=== PATIENT | male | born 1960 | race Caucasian/White ===

== ENCOUNTER 2021-03-04 07:50 | Day surgery (SDC) | payer BC ==
--- NOTE | 2021-03-01 11:44 | NUR ---
COVID SWAB COLLECTED AND SENT TO [facility]
[~2021-03-04] VITALS: Ht 175.3 cm; Wt 106.4 kg
[~2021-03-04 07:50] MED LIST: ALEVE220 MG PO; ALLER-TEC10 MG PO; METOPROLOL TART25 MG PO; PREDNISONE20 MG PO; TRIAMTERENE-HC1 EAC3 PO
[2021-03-04] MEDS ORDERED: HYDROCODON-ACE1 EA10 PO (11:38)
--- NOTE | 2021-03-04 12:13 | NUR ---
03/04/21 1213 Annabel Arauz 1135 PT ARRIVED IN PACU SLEEPY. L LEG ELEVATED AND ICE PLACED. 1145 PT AWAKE AND TALKING TO STAFF. TAKING SIPS OF WATER. 1200 TO DS. REPORT GIVEN TO RN AT 1205. WATER AND CRACKERS GIVEN TO PT.
--- NOTE | 2021-03-04 12:17 | NUR ---
1205: PT RETURNS TO DAY SURGERY ROOM 4 VIA STRETCHER. AWAKE AND ORIENTED. VSS, RESP EVEN AND UNLABORED. REPORTS 3/10 PAIN. AGREEABLE TO EATING CRACKERS PRIOR TO PAIN RX ADMINISTRATION. DENIES NAUSEA, DEBBY PO FLUIDS WELL. DRESSING C/D/I, CMS WNL. NO NEEDS VOICED AT THIS TIME. TC PLACED TO AND UPDATE PROVIDED. CALL LIGHT WITHIN REACH
--- NOTE | 2021-03-04 13:06 | NUR ---
1300: PT COMFORTABLE SITTING IN STRETCHER AND CONVERSING WITH . VSS, RESP EVEN AND UNLABORED. DRESSING REMAINS C/D/I, CMS WNL. PT DENIES PAIN AFTER RX ADMINISTRATION. CRYO CUFF AND SCDS IN PLACE. DENIES NEEDS AND REQUESTS AT THIS TIME. CALL LIGHT WITHIN REACH
--- NOTE | 2021-03-04 13:42 | NUR ---
PATIENT STATED A LITTLE FUZZY AFTER HIS PAIN MEDICATION. PATIENT AMBULATED TO BATHROOM WITH 2 PERSON ASSIST, STEADY GAIT. PATIENT VOIDED 75 ML.
--- NOTE | 2021-03-04 14:20 | NUR ---
1410: PT COMFORTABLE WATCHING TV IN STRETCHER. DENIES PAIN AND NAUSEA. VSS, RESP EVEN AND UNLABORED. DEBBY PO INTAKE WELL. DRESSING C/D/I, CMS WNL. CRYO CUFF AND SCDS IN PLACE. NO NEEDS VOICED CALL LIGHT WITHIN REACH
--- NOTE | 2021-03-04 15:10 | NUR ---
1445: PT UP TO BR. STEADY GAIT, VOIDS 500MLS. BACK TO ROOM 4 TO PREPARE FOR D/C 1455: SL REMOVED WITH CATH TIP IN PLACE AND PRESSURE APPLIED TO SITE. D/C INSTRUCTIONS PROVIDED AND DISCUSSED ORDERED. PT VOICES UNDERSTANDING AND DENIES QUESTIONS AND CONCERNS AT THIS TIME. WHEELED OFF OF UNIT IN W/C BY THIS RN. TRANSFERS INTO VEHICLE INDEPENDENTLY. NO PHYSICAL S/S OF DISTRESS AT THIS TIME
--- NOTE | 2021-03-06 07:10 | OR ---
[facility] [address] [place] [address] Signed DATE OF OPERATION: 03/04/2021 SURGEON: Pinky Junior MD PREOPERATIVE DIAGNOSIS: Medial meniscus tear, left knee. POSTOPERATIVE DIAGNOSES: 1. Medial meniscus tear, left knee. 2. Cartilaginous loose bodies with hemorrhagic synovitis. PROCEDURE PERFORMED: Left knee arthroscopy with partial medial meniscectomy and retrieval of loose bodies. TURRET LATHE TENDER: None. ANESTHESIA: General. BLOOD LOSS: 50 mL. BRIEF HISTORY: Yefri is a 60-year-old gentleman with pain and locking in his knee. MRI is consistent with a large posteromedial meniscus tear. Risks and benefits of operative treatment discussed with him and he elected to proceed. DESCRIPTION OF PROCEDURE: Once consent was obtained, he was taken to the operating room. After adequate anesthesia, he was placed on the operating room table. All downside pressure points were well padded. The knee was prepped and draped in a standard sterile fashion after injecting the portal sites with 0.25% Marcaine with epinephrine under an alcohol prep. Standard inferior lateral and superolateral portals were made and the scope was introduced in the knee. ARTHROSCOPIC FINDINGS: The knee showed hemorrhagic synovitis throughout. There were multiple large cartilaginous loose bodies in the suprapatellar pouch primarily. There was extensive synovitis anteriorly down, extending over the medial side and the fat pad. The ACL was Electronically Signed By: PINKY JUNIOR MD 03/06/21 0710 PATIENT NAME: YEFRI PARISH SHANKAR OPERATIVE REPORT DATE OF : 56 REPORT #: [id number] PHYSICIAN: PINKY JUNIOR MD PCP: Toney Davis DO REPORT IS CONFIDENTIAL AND NOT TO BE RELEASED WITHOUT AUTHORIZATION [facility] [address] [place], [place] [address] Signed degenerative and was quite inflamed. Lateral compartment was intact. There was no significant chondral damage or meniscal tear. 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 Grade 1 to 2 changes on the trochlear side. Medial and lateral gutters were quite swollen and showed significant synovitis. The medial compartment showed grade 3 to grade 4 cartilage loss of the medial femoral condyle, which is likely the donor site for the loose bodies. The meniscus was torn from the mid medial body extending around posteriorly. There were superior and inferior leaflets as well as radial tears. DESCRIPTION OF OPERATION: A standard inferomedial portal was made. The straight and bent biters were used to trim the meniscus tear back to a stable rim. This was then smoothed and all debris was evacuated. The grasper was then used to retrieve the loose bodies from the suprapatellar pouch primarily. Most of them were stuck against the outflow cannula. The loose bodies were removed and the synovitis was debrided as necessary. Once this was accomplished, the scope was withdrawn. Portals were closed with 3-0 nylon. Dressed with Adaptic ABD and Ridge wrap. We injected the knee with 1 g of TXA at the end of the procedure to calm down the bleeding. He tolerated the procedure well. All sponge, needle, and instrument counts were correct. Pinky Junior MD BA/MODL /[id number] Copies: ~ Electronically Signed By: PINKY JUNIOR MD 03/06/21 0710 PATIENT NAME: YEFRI PARISH SHANKAR OPERATIVE REPORT DATE OF : 56 REPORT #: [id number] PHYSICIAN: PINKY JUNIOR MD PCP: Toney Davis DO REPORT IS CONFIDENTIAL AND NOT TO BE RELEASED WITHOUT AUTHORIZATION
== END 2021-03-04 14:55 | disposition home or self-care (01) ==
LOC: DS 07:50
PROVIDERS: ATTEND Specialist
PROC: 0SBD4ZZ Excision of Left Knee Joint, Percutaneous Endoscopic Approach (ICD-10-PCS; principal; 2021-03-04 11:30)
DX: S83.242A Other tear of medial meniscus, current injury, left knee, initial encounter (principal); M65.862 Other synovitis and tenosynovitis, left lower leg; M23.42 Loose body in knee, left knee; M17.12 Unilateral primary osteoarthritis, left knee; X58.XXXA Exposure to other specified factors, initial encounter; Z96.651 Presence of right artificial knee joint
CPT/HCPCS: 01400; J0690; J1885; J2001; J2405; J2704; J3010